=== PATIENT | male | born 1995 | race Caucasian/White ===

== ENCOUNTER 2019-09-24 22:56 | Emergency (ER) | payer BC, MEDICAID ==
[2019-09-24] MEDS ORDERED: IBUPROFEN 600 MG TABLET PO ONE (23:09)
[2019-09-24] MEDS ORDERED: ACETAMINOPHEN 325 MG TAB PO ONE (23:09)
--- NOTE | 2019-09-24 23:19 | Emergency Department Record ---
History of Present Illness - General Chief complaint: Cold Stated complaint: BAD COLD Time Seen by Provider: 09/24/19 23:01 Source: Patient Mode of Arrival: Ambulatory Limitations: No limitations - History of Present Illness Initial comments: The patient is here due to a 2 day hx of fever, chills, dry cough, body aches, ST, and mild ROJAS. The patient denies any SOB, ANDREE, neck pain, vomiting, or diarrhea. The patient did not get a flu shot this year. MD complaint: Sore throat, Other Onset/Timin -: Days(s) Severity: Moderate Severity scale (1-10): 5 Quality: Aching Consistency: Constant Improves with: None Worsens with: None Associated Symptoms: Cough, Fever - Related Data Previous Rx's Medication Instructions Recorded Oseltamivir Phosphate [Tamiflu] 75 mg PO BID #9 capsule 09/24/19 Allergies Allergy/AdvReac Type Severity Reaction Status Date / Time No Known Drug Allergies Allergy Verified 09/24/19 23:04 Travel/Exposure Screening - Travel/Exposure Within Last 30 Days Have you traveled within the last 30 days?: No - Travel/Exposure Within Last Year Have you traveled outside the [place] in the last year?: No - Additonal Travel/Exposure Details Have you been exposed to anyone with a communicable illness?: No - Travel Symptoms Symptom Screening: None Review of Systems Constitutional: Reports: Chills, Fever, Malaise Eyes: Denies: Eye discharge ENT: Reports: Congestion Respiratory: Reports: Cough. Denies: Dyspnea Cardiovascular: Denies: Chest pain Endocrine: Reports: Fatigue Gastrointestinal: Denies: Nausea Genitourinary: Denies: Dysuria Musculoskeletal: Denies: Arthralgia Neurological: Denies: Abnormal gait Past Medical History - SOCIAL HISTORY Smoking Status: Current every day smoker Alcohol Use: None Drug Use: None - RESPIRATORY Hx Respiratory Disorders: No - CARDIOVASCULAR Hx Cardio Disorders: No - NEURO Hx Neuro Disorders: No - GI Hx GI Disorders: No - Hx Genitourinary Disorders: No - ENDOCRINE Hx Endocrine Disorders: No - MUSCULOSKELETAL Hx Musculoskeletal Disorders: No - PSYCH Hx Psych Problems: No - HEMATOLOGY/ONCOLOGY Hx Hematology/Oncology Disorders: No Family Medical History Any Significant Family History?: No Physical Exam - General General Appearance: Alert, Oriented x3, Cooperative, No acute distress - Head Head exam: Atraumatic, Normocephalic, Normal inspection - Eye Eye exam: Normal appearance, PERRL - ENT ENT exam: Normal exam, Mucous membranes moist, Normal external ear exam, Normal orophraynx, TM's normal bilaterally Throat exam: Normal inspection. negative: Tonsillar erythema, Tonsillar exudate - Neck Neck exam: Normal inspection, Full ROM. negative: Lymphadenopathy, Meningismus, Tenderness - Respiratory Respiratory exam: Normal lung sounds bilaterally. negative: Respiratory distress - Cardiovascular Cardiovascular Exam: Regular rate, Normal rhythm, Normal heart sounds - GI/Abdominal GI/Abdominal exam: Soft, Normal bowel sounds. negative: Tenderness - Extremities Extremities exam: Normal inspection, Full ROM, Normal capillary refill. negative: Tenderness - Neurological Neurological exam: Alert, Normal gait. negative: Abnormal gait, Motor sensory deficit - Psychiatric Psychiatric exam: negative: Anxious Course Vital Signs 09/24/19 23:00 Temperature 102.1 F H Pulse Rate [ 116 H Pulse Ox Probe] Respiratory 28 H Rate Blood Pressure 140/102 [Left Arm] Pulse Ox 99 - Reevaluation(s) Reevaluation #1: The patient is feeling better but still has an intermittent cough. His ROJAS is almost gone and he denies any SOB with the cough. I did discuss the fact the flu swab was neg but I do believe it was a false neg test. The patient has classic symptoms of Influenza and did not get a flu shot and since Influenza is at this time basically an epidemic around this area I do feels strongly that is the illness he has. Since he is within 48 hours of the onset we will start him on Tamiflu and have him see his PCP or return to the ER in 2 days if not better. 09/24/19 23:52 Reevaluation #2: On repeat exam the patient's vitals are much improved. His HR is 105 and RR is 20. The body aches are much better. 09/24/19 23:57 Medical Decision Making - Data Complexity MDM Data: Labs Ordered and/or Reviewed (Flu: Neg), X-Ray Ordered and/or Reviewed (CXR: Neg.) Disposition Disposition: Discharge Clinical Impression: URI, acute Disposition: Home, Self-Care Condition: (2) Stable Instructions: Upper Respiratory Infection (ED) Additional Instructions: Please alternate Tylenol and Motrin for fever and drink plenty of fluids. Please continue the Tamiflu tomorrow and also use an OTC cough and cold medicine. Please see your family doctor in 2 days for recheck or return to the ER for any persistent or worsening symptoms, high fever, vomiting, or any trouble breathing or shortness of breath. Prescriptions: Oseltamivir Phosphate [Tamiflu] 75 mg PO BID #9 capsule Forms: Patient Portal Access Time of Disposition: 23:57 Quality - Quality Measures Quality Measures: N/A - Blood Pressure Screening View Details: Yes Does Patient Have Any of the Following: No Blood Pressure Classification: Pre-Hypertensive BP Reading Systolic Measurement: 130 Diastolic Measurement: 77 Screening for High Blood Pressure: < Pre-Hypertensive BP, F/U Documented > [[id number]] Pre-Hypertensive Follow-up Interventions: Referral to alternative/primary care provider.
[2019-09-24 23:23] LABS: INFLUENZA A NEGATIVE (NEGATIVE); INFLUENZA B NEGATIVE (NEGATIVE)
--- NOTE | 2019-09-24 23:40 | RADIOLOGY REPORT ---
EXAMINATION: CHEST 2 VIEWS EXAM DATE: 09/24/2019 11:33 PM TECHNIQUE: Frontal and lateral views of the chest INDICATION: cough COMPARISON: None FINDINGS: The cardiomediastinal silhouette is normal. The lungs are clear. No evidence of pneumonia or pulmonary edema. No pneumothorax or pleural effusion. The bones are unremarkable. IMPRESSION: Unremarkable examination. Dictated by: Kapil Beebe MD on 09/24/2019 11:35 PM. .
[2019-09-24] MEDS ORDERED: OSTELTAMIVIR 75 MG CAP PO ONE (23:51)
== END 2019-09-25 00:04 | disposition home or self-care (01) ==
LOC: ER 22:56
DX: J06.9 Acute upper respiratory infection, unspecified (principal); R05 Cough; R51 Headache; F17.210 Nicotine dependence, cigarettes, uncomplicated
CPT/HCPCS: 71046; 87400; 99283